=== PATIENT | male | born 1950 | race Caucasian/White ===

== ENCOUNTER 2024-09-19 08:42 | Day surgery (SDC) | payer MEDICARE ==
[2024-09-14 15:00] VITALS: BMI 30.8
[2024-09-19] MEDS ORDERED: EPINEPHrine 1 MG/ML VIAL ONE (11:13)
[2024-09-19] MEDS ORDERED: Lidocaine 1% (PF) 30 ML VIAL ONE (11:14)
[2024-09-19] MEDS ORDERED: Lidocaine 1% PF 5 ML VIAL ONE (11:18)
[2024-09-19] MEDS ORDERED: SUCCINYLCHOLINE/SOD CL,ISO/PF 200 MG/10 ML SYRINGE FS ONE (11:18)
[2024-09-19] MEDS ORDERED: fentaNYL 50 mcg/mL 1 mL Vial ONE (11:18)
[2024-09-19] MEDS ORDERED: PROPOFOL 20 ML ONE (11:18)
[2024-09-19] MEDS ORDERED: Ondansetron PF 4 MG/2 ML Vial ONE (11:18)
[2024-09-19] MEDS ORDERED: Dexamethasone 4 mg/ml Vial ONE (11:18)
[2024-09-19] MEDS ORDERED: Clindamycin/D5W 900 mg/50 ml Premix Bag ONE (11:32)
[2024-09-19] MEDS ORDERED: Dexamethasone 20 MG/5 ML VIAL ONE (11:56)
[2024-09-19] MEDS ORDERED: Glycopyrrolate 0.2 MG/ML 5 ML SYRINGE ONE (11:57)
[2024-09-19] MEDS ORDERED: ePHEDrine Sulfate 50 MG/10 ML VIAL ONE (12:02)
[2024-09-19] MEDS ORDERED: PHENYLEPHRINE-NS 100 MCG/ML 10 ML SYRINGE ONE (12:10)
[2024-09-19] MEDS ORDERED: HYDROcodone/Acetaminophen 5/325 mg Tablet ONE (13:38)
== END 2024-09-19 14:25 | disposition home or self-care (01) ==
LOC: CSHSDC 08:42
PROVIDERS: ATTEND Otolaryngology Plastic Surgery within the Head & Neck
PROC: 0CB80ZZ Excision of Right Parotid Gland, Open Approach (ICD-10-PCS; principal; 2024-09-19)
DX: C07 Malignant neoplasm of parotid gland (principal); C77.0 Secondary and unspecified malignant neoplasm of lymph nodes of head, face and neck; I10 Essential (primary) hypertension; E11.9 Type 2 diabetes mellitus without complications; E78.00 Pure hypercholesterolemia, unspecified; H91.90 Unspecified hearing loss, unspecified ear; Z87.891 Personal history of nicotine dependence; Z98.890 Other specified postprocedural states; Z88.0 Allergy status to penicillin; Z79.82 Long term (current) use of aspirin; Z79.02 Long term (current) use of antithrombotics/antiplatelets; Z79.84 Long term (current) use of oral hypoglycemic drugs; Z79.01 Long term (current) use of anticoagulants; Z79.899 Other long term (current) drug therapy
CPT/HCPCS: 42420; J0171; J1100 ×2; J2405; J2704; J3010; J3490; 88307